=== PATIENT | male | born 1985 | race American Indian/Alaskan Native ===

== ENCOUNTER 2018-02-27 10:31 | Emergency (ER) | payer BC ==
--- NOTE | 2018-02-27 11:03 | ED PDOC ---
Arrival/HPI - General Chief Complaint: Lower Extremity Problem/Injury Historian: Patient - History of Present Illness Narrative History of Present Illness (Text): 02/27/18 11:03 32 y/o male, no significant pmh, nkda, c/o lt. lateral hip pain x 3-4 days with no fall or trauma. Aching pain, aggravated by walking and movement, no limping, no night sweat, no rash, no dizziness, no pain medication taken at home, no other medical or psychological complaints. Past Medical History - Provider Review Nursing Documentation Reviewed: Yes - Infectious Disease Hx of Infectious Diseases: None - Cardiac Hx Cardiac Disorders: No - Pulmonary Hx Respiratory Disorders: No - Genitourinary/Gynecological Hx Genitourinary Disorders: No - Psychiatric Hx Psychophysiologic Disorder: No Hx Substance Use: No - Anesthesia Hx Anesthesia: No Family/Social History - Physician Review Nursing Documentation Reviewed: Yes Family/Social History: Unknown Family HX Smoking Status: Unknown If Ever Smoked Hx Alcohol Use: No Hx Substance Use: No Allergies/Home Meds Allergies/Adverse Reactions: Allergies No Known Allergies Allergy (Verified 02/27/18 11:00) Review of Systems - Review of Systems Constitutional: absent: Fatigue Eyes: absent: Vision Changes ENT: absent: Hearing Changes Respiratory: absent: SOB, Cough, Sputum Cardiovascular: absent: Chest Pain Gastrointestinal: absent: Abdominal Pain, Diarrhea, Nausea, Vomiting Musculoskeletal: Arthralgias. absent: Back Pain, Neck Pain Skin: absent: Rash, Pruritis Neurological: absent: Headache, Dizziness Psychiatric: absent: Anxiety, Depression Physical Exam Vital Signs Reviewed: Yes Vital Signs Temp Pulse Resp BP Pulse Ox 02/27/18 10:45 98.5 F 94 H 18 134/93 H 96 Temperature: Afebrile Blood Pressure: Hypertensive Pulse: Regular Respiratory Rate: Normal Appearance: Positive for: Well-Appearing, Non-Toxic, Comfortable Pain Distress: Moderate Mental Status: Positive for: Alert and Oriented X 3 - Systems Exam Head: Present: Atraumatic, Normocephalic Pupils: Present: PERRL Extroacular Muscles: Present: EOMI Conjunctiva: Present: Normal Mouth: Present: Moist Mucous Membranes Neck: Present: Normal Range of Motion Respiratory/Chest: Present: Clear to Auscultation, Good Air Exchange. No: Respiratory Distress, Accessory Muscle Use Cardiovascular: Present: Regular Rate and Rhythm, Normal S1, S2. No: Murmurs Abdomen: No: Tenderness, Distention, Peritoneal Signs Back: Present: Normal Inspection Upper Extremity: Present: Normal Inspection. No: Cyanosis, Edema Lower Extremity: Present: Normal Inspection, Other (LLE: +ttp on the lt. lateral hip region with pain aggravated by internal hip rotation, no cellulitis or ulcers, FROM without limitation, no bony tenderness, sensation intact, motor 5/5, +DPPT pulses, capillary refill< 2 seconds, neurovascular intact. ). No: Edema Neurological: Present: GCS=15, CN II-XII Intact, Speech Normal Skin: Present: Warm, Dry, Normal Color. No: Rashes Psychiatric: Present: Alert, Oriented x 3, Normal Insight, Normal Concentration Medical Decision Making ED Course and Treatment: 02/27/18 11:02 -Lt. hip/pelvis xray -LLE venuous doppler -Toradol and valium -observe and reassess 02/27/18 14:14 -Lt. hip/pelvis xray: ER wet read: no fracture or dislocation but there is mild lateral calcification -LLE venuous doppler: as per preliminary report, no acute DVT -Pt. feels much better, walking with normal gait and posture, will discharge home. -Discharge home with indomethacin/voltaren gel, cane, follow up with your own pmd and orthopedic within 2 days, return to the ER for any new or worsening signs or symptoms. - RAD Interpretation Radiology Orders: -Lt. hip/pelvis xray: please see official result --- -LLE venuous doppler: as per preliminary report, no acute DVT [employer] Planning Internship: Radiologist - PA / ASSIGNMENT CLERK / Resident Statement / has reviewed & agrees with the documentation as recorded. Disposition/Present on Arrival - Present on Arrival Any Indicators Present on Arrival: No History of DVT/PE: No History of Uncontrolled Diabetes: No Urinary Catheter: No History of Decub. Ulcer: No History Surgical Site Infection Following: None - Disposition Have Diagnosis and Disposition been Completed?: Yes Diagnosis: Calcific bursitis Disposition: HOME/ ROUTINE Disposition Time: 14:15 Patient Plan: Discharge Condition: IMPROVED Discharge Instructions (ExitCare): Bursitis Additional Instructions: -Discharge home with indomethacin/voltaren gel, cane, follow up with your own pmd and orthopedic within 2 days, return to the ER for any new or worsening signs or symptoms. Prescriptions: Diclofenac Sodium [Voltaren] 1 appful TP BID PRN #100 gel..gram. PRN Reason: Other Indomethacin [Indocin] 50 mg PO DAILY PRN #14 cap PRN Reason: Other Referrals: Parth Frazier, [Staff Provider] - Follow up with primary Forms: [facility] (Green[place]ic), WORK NOTE
--- NOTE | 2018-02-27 13:59 | RAD ---
PROCEDURE: Left Hip X-ray Radiographs. HISTORY: Posttraumatic left COMPARISON: None. FINDINGS: BONES: Normal. No fracture. JOINTS: Normal. SOFT TISSUES: Evidence of calcific bursitis noted but likely the sequela of prior trauma. OTHER FINDINGS: None. IMPRESSION: No acute findings related to/ accounting for the clinical presentation. Additional benign and/or incidental findings described above. Concordant results with the preliminary interpretation rendered by the emergency department physician procedure.
[2018-02-27 17:52] VITALS: RESP 19; TEMP 98.1
[2018-02-27 17:56] VITALS: BP 131/74; PULSE 87; O2SAT 99
--- NOTE | 2018-02-27 21:50 | US ---
PROCEDURE: Left lower extremity venous US HISTORY: Leg pain and swelling. Evaluate for DVT. PHYSICIAN(S): Cal Goodrich MD. TECHNIQUE: Duplex sonography and color-flow Doppler with graded compression were used to evaluate the deep venous system of the left lower extremity. FINDINGS: The visualized deep venous system of the left lower extremity is sonographically normal and compressible. Normal wave forms and augmentation are seen. There is no sonographic evidence for deep venous thrombosis in the visualized segments of the left lower extremity. IMPRESSION: 1. No sonographic evidence for deep venous thrombosis in the visualized segments of the left lower extremity.
== END 2018-02-27 15:30 | disposition home or self-care (01) ==
LOC: ED 10:31
DX: M71.552 Other bursitis, not elsewhere classified, left hip (principal)
CPT/HCPCS: 73502; 93971; 96372; 99282; J1885